=== PATIENT | female | born 1995 | race Caucasian/White ===

== ENCOUNTER 2022-12-01 10:29 | Emergency (ER) | payer OTHER, SELFPAY ==
--- NOTE | ~2022-12-01 | CT_ITS ---
Non-contrast Head CT History: Headache Technique: Axial non-contrast imaging of the brain was performed. Dose reduction technique was used on this scan by utilizing automated exposure control and iterative reconstruction technique. The dose -length product (DLP) was 605.33 mGy-cm. Findings: There is no evidence of intracranial hemorrhage, mass lesion, or acute infarct. Brain par enchyma appears normal. The ventricles and subarachnoid spaces are normal in size. The calvarium ap pears normal. The visualized paranasal sinuses and mastoid air cells are clear. Impression: No significant abnormality seen. Reviewed, dictated and finalized at location . Impression: No significant abnormality seen.
[2022-12-01 10:44] VITALS: BP 136/96; PULSE 104; RESP 18; TEMP 36.8; O2SAT 98
--- NOTE | 2022-12-01 11:59 | ED.HA ---
HPI - Headache General Chief Complaint: Headache Stated Complaint: migraine, very frequent headaches Time Seen by Provider: 12/01/22 11:07 Source: patient Mode of arrival: ambulatory Limitations: no limitations History of Present Illness HPI Narrative: This is a 27-year-old female that presents to the emergency department for a headache ongoing over the last 4 days. Reports aching pain that is intermittently sharp. Associated with nausea and blurry vision. She has been taking [id number] medications for this with some relief. Reports she does not usually get headaches often. No recent injuries or trauma. She is currently being treated with amoxicillin for sinusitis. Denies fever, vomiting, numbness, or weakness. Related Data Allergies Allergy/AdvReac Type Severity Reaction Status Date / Time No Known Allergies Allergy Unverified 05/11/18 14:13 Review of Systems Review of Systems: CONSTITUTIONAL: Denies fever EYES: Reports visual changes ENT: Reports congestion GASTROINTESTINAL: Reports nausea. Denies vomiting NEUROLOGIC: Reports headache. Denies numbness, or weakness. All systems reviewed & are unremarkable except as noted in HPI and below PMFSH Past Medical History Medical History (Updated 12/01/22 @ 13:14 by Tiffany Nieto PA-C) History of PCOS Social History Social History (Updated 12/01/22 @ 12:04 by Tiffany Nieto PA-C) Smoking status: Never smoker Substance use: never Exam Narrative: GENERAL: Well-appearing, well-nourished, and in no acute distress. HEAD: Normocephalic, atraumatic. EYES: PERRLA and EOMI. ENT: Nares clear, no rhinorrhea or epistaxis. Mucous membranes moist. Oropharynx without tonsillar hypertrophy exudate or other lesions. Bilateral TMs pearly ingram non-bulging NECK: Supple. No adenopathy or masses. CHEST: Clear to auscultation. No respiratory distress. No wheezes rales or rhonchi HEART: Regular rate and rhythm. No murmur heard. Normal peripheral pulses. EXTREMITIES: Normal range of motion. No edema. Strength equal in bilateral upper and lower extremities (5/5) SKIN: Warm, dry, no rash. NEURO: No focal deficits. Alert and oriented x3. CN II-XII grossly intact. Normal finger to nose. Negative Kernig and Brudzinski PSYCH: Normal mood and affect Course Course Emergency Course: Patient and family updated on workup and agree with plan of care Vital Signs Vital signs: Vital Signs Temperature 98.2 F 12/01/22 10:44 Pulse Rate 104 H 12/01/22 10:44 Respiratory Rate 18 12/01/22 10:44 Blood Pressure 136/96 H 12/01/22 10:44 Pulse Oximetry 98 12/01/22 10:44 Oxygen Delivery Room Air 12/01/22 10:44 Temperature 98.2 F 12/01/22 10:44 Pulse Rate 104 H 12/01/22 10:44 Respiratory Rate 18 12/01/22 10:44 Blood Pressure 136/96 H 12/01/22 10:44 Pulse Oximetry 98 12/01/22 10:44 Oxygen Delivery Room Air 12/01/22 10:44 MDM - Headache MDM Narrative Medical decision making narrative: Patient presents to the ER for headaches ongoing over the last week. Currently being treated for sinusitis. She is afebrile and nontoxic-appearing. Patient is neurologically intact. No recent injuries or trauma. CT scan of the brain is without acute findings. Patient reports relief with migraine cocktail. Patient and family updated on work-up and agree with plan of care. She is to follow-up with her primary care provider. She was given warnings to return to the ER Differential Diagnosis Differential diagnosis: Likely migraine, tension headache, subarachnoid hemorrhage, meningitis and sinusitis Lab Data Attestation: I reviewed the patient's lab results. Labs: UCG Bedside Result Negative Reference Range: Negative Imaging Data Radiologist's impression: ITS Impressions Head CT 12/01/22 11:25 Impression: No significant abnormality seen. Critical Care Time Critical Ca
[2022-12-01] MEDS: SODIUM CHLORIDE 0.9% IV 1,000 ML 999 ML IV CONT (12:00)
[2022-12-01] MEDS: KETOROLAC 15 MG/ML VIAL (*BKC) IV PUSH (12:02)
[2022-12-01] MEDS: diphenhydrAMINE HCl INJ 50 MG/ML VIAL 25 MG IV PUSH (12:06)
[2022-12-01] MEDS: METOCLOPRAMIDE HCL INJ 10 MG/2 ML VIAL IV PUSH (12:08)
== END 2022-12-01 13:22 | disposition home or self-care (01) ==
PROVIDERS: Emergency Provider Physician Assistant; PCP Nurse Practitioner Family
DX: R51.9 Headache, unspecified (principal); J32.9 Chronic sinusitis, unspecified; E28.2 Polycystic ovarian syndrome
CPT/HCPCS: 70450; 81025; 96361; 96374; 96375; 99284; J1200; J1885; J2765; J7030

== ENCOUNTER 2023-03-14 10:52 | Outpatient (CLI) | payer OTHER, SELFPAY ==
--- NOTE | ~2023-03-14 | US_ITS ---
Renal-Bladder ultrasound Clinical History: Renal cyst Technique: Real-time sonographic imaging of the kidneys and urinary bladder was performed. Findings: The right kidney measures 11.8 cm in length and the left kidney measures 14.2 cm. There is no hydronephrosis or renal calculus identified. Renal cortical echogenicity is within normal limits. Small right renal cyst noted. The urinary bladder is moderately distended at the time of this exam. No intraluminal echoes are iden tified. No abnormal wall thickening is seen. Impression: Small right renal cyst, of doubtful clinical significance. Reviewed, dictated and finalized at location M. Impression: Small right renal cyst, of doubtful clinical significance.
== END 2023-03-14 10:53 ==
LOC: GOSHIMG 10:54
PROVIDERS: PCP Nurse Practitioner Family; Visit Provider Nurse Practitioner Family
DX: N28.1 Cyst of kidney, acquired (principal)
CPT/HCPCS: 76775

== ENCOUNTER 2024-06-20 10:20 | Outpatient (CLI) | payer OTHER, SELFPAY ==
--- NOTE | ~2024-06-20 | US_ITS ---
Abdominal Sonogram: Real-time sonographic imaging of the abdomen was performed. Clinical History: Epigastric pain Findings: The liver appears normal with no evidence of mass lesion or bile duct dilatation. Main por huey vein demonstrates normal direction of flow. The spleen is normal in size without evidence of foca l lesion. The gallbladder is well distended, and contains echogenic gallstones. No definite gallblad crystal wall thickening. The common bile duct measures 7 mm. The visualized pancreas, aorta, and IVC are unremarkable. The right kidney measures 11.6 cm in length and the left kidney measures 12.6 cm. Th ere is no hydronephrosis or renal calculus. Impression: Cholelithiasis. Reviewed, dictated and finalized at location M. Impression: Cholelithiasis.
== END 2024-06-20 10:21 | disposition home or self-care (01) ==
LOC: MICIMG 10:22
PROVIDERS: PCP Nurse Practitioner Family; Visit Provider Nurse Practitioner Family
DX: R10.13 Epigastric pain (principal); K80.20 Calculus of gallbladder without cholecystitis without obstruction
CPT/HCPCS: 76700

== ENCOUNTER 2025-09-17 08:46 | Outpatient (CLI) | payer OTHER, SELFPAY ==
--- NOTE | ~2025-09-17 | US_ITS ---
Examination: US abdomen complete Clinical History: RUQ abdominal pain . Comparison: Ultrasound 06/20/2024 Technique: Complete abdominal sonography Findings: Liver: Normal size. Normal echotexture. No intrahepatic biliary ductal dilatation. Normal hepatopedal flow main portal vein. Common duct: 6 mm after cholecystectomy. Gallbladder: Removed. Spleen: Prominent. Pancreas: Unremarkable. Kidneys: Left kidney mildly enlarged. Small right renal cyst. Aorta: No aneurysmal dilatation. Retrohepatic IVC: Unremarkable. IMPRESSION: 1. No acute findings. Reviewed, dictated and finalized at location R. ANICAL TECH IMPRESSION: 1. No acute findings.
== END 2025-09-17 08:47 | disposition home or self-care (01) ==
PROVIDERS: PCP Nurse Practitioner Family; Visit Provider Nurse Practitioner Family
DX: R10.11 Right upper quadrant pain (principal)
CPT/HCPCS: 76700